=== PATIENT | female | born 1965 | race Caucasian/White ===

== ENCOUNTER 2023-09-26 04:36 | Emergency (ER) | payer OTHER, SELFPAY ==
[2023-09-26 04:36] VITALS: BMI 35.6
[2023-09-26 04:50] VITALS: BP 199/88
[2023-09-26 06:15] LABS: % Basophils 0.6 % (0-2); % Eosinophils 0.8 % (0-6); % Immature Granulocytes 0.2 % (0-0.5); % Lymphocytes 21.1 % (20.5-51.1); % Monocytes 8.3 % (1.7-9.3); Absolute Basophils 0.1 10^3/uL (0-0.2); Absolute Eosinophils 0.1 10^3/uL (0-0.7); Absolute Lymphocytes 1.8 10^3/uL (1.2-3.4); Absolute Monocytes 0.7 10^3/uL (0.1-0.6); Absolute Neutrophils 5.8 10^3/uL (1.4-6.5); Hematocrit 41.5 % (37.0-47.0); Hemoglobin 14.1 g/dL (12.0-16.0); Mean Corpuscular Volume 88.3 fL (81.0-99.0); Mean Platelet Volume 10.1 fL (7.4-10.4); Nucleated Red Blood Cells % 0 %; Platelet Count 378 10^3/uL (130-400); Red Cell Dist. Width 12.5 % (11.5-14.5); White Blood Cell Count 8.4 10^3/uL (4.8-10.8)
[2023-09-26] MEDS: ATARAX 25 MG PO (06:24)
[2023-09-26 06:52] LABS: ALT (SGPT) 27 U/L (0-35); AST (SGOT) 23 U/L (14-36); Albumin 4.3 g/dl (3.5-5.0); Alkaline Phosphatase 55 U/L (38-126); Blood Urea Nitrogen 16 mg/dl (7-17); Calcium 9.7 mg/dl (8.4-10.2); Carbon Dioxide 26 mmol/L (22-30); Chloride 103 mmol/L (98-107); Estimated Creatinine Clearance 103 ml/min; Glucose 142 mg/dl (70-99); Potassium 4.5 mmol/L (3.5-5.1); Sodium 137 mmol/L (135-145); Total Bilirubin 0.7 mg/dl (0.2-1.3); Total Protein 6.8 g/dl (6.3-8.2); eGFR > 60.00
[2023-09-26 06:53] LABS: Alcohol None Detected
--- NOTE | 2023-09-26 07:51 | ED.GENMED ---
History of Present Illness
General
Chief Complaint: Suicidal Ideation
Source: patient and spouse
Exam Limitations: none
Time Seen by Provider: 09/26/23 05:24
Nursing documentation reviewed up to this point in time: agreed with
Travel History
Have you had any contact with someone who has COVID-19?: No
Do you have any symptoms of coronavirus? Fever > 100 degrees, chills, cough, shortness of breath, sore throat, loss of taste or smell, muscle aches, or headache?: No
History of Present Illness
History of Present Illness:
This is a 58-year-old woman who resides at home with her . She has longstanding history of anxiety, insomnia and for years has been maintained on once daily Klonopin as well as alprazolam, had been prescribed by a psychiatrist who retired
this past summer. She had been receiving refills at an urgent care until July when urgent care declined further refills and recommended she establish with a new psychiatrist.
She was evaluated in this ED September 11 with complaints of anxiety, difficulty sleeping. PDMP on that date revealed her last prescription for Klonopin and alprazolam were filled July. She was evaluated by Liza ruiz and discharged to home
and has since followed up with a new psychiatrist, has been started on 2 psychiatric medications 1 is Lamictal, the other she cannot recall the name. She was provided a 1 week course of Klonopin 1 mg at time of discharge from the ED.
Benzodiazepines have since not been resumed.
She complains of progressive agitation, difficulty sleeping, depression and returns to the ED tonight with her with concerns for suicidal thoughts, thoughts of . She has no specific plan.
She denies alcohol nor drug use.
She does admit to remote history of suicidal thoughts in her teen years. No prior attempts.
She does follow with a therapist, telehealth visits but these visits are few and far between generally once per month with her next appointment scheduled for mid October.
Past History
Past History
ED Past Medical History: Hypercholesterolemia, Psychiatric (Bipolar disorder, chronic insomnia) and Other (Irritable bowel syndrome)
ED Past Surgical History: Other (Right eye)
Social History
Tobacco: Non-smoker
Alcohol: None
Drug: None
Personal:
Living: with family
Family History
Family History: Other (Noncontributory)
Phy Exam
Physical Exam
Physical Exam:
GENERAL: 58-year-old woman appears her stated age, awake and alert, mildly anxious/agitated but easily communicative. Speech is clear. She does admit to suicidal thoughts but no definitive plan. is accompanying.
EYE: pupils equal and reactive. anicteric
NECK: Supple, nontender, no meningismus, no significant adenopathy.
ENT: oral mucosa is moist. No rhinorrhea.
CARDIAC: Regular rate and rhythm. no murmur.
LUNGS: Clear breath sounds bilaterally, no acute respiratory distress, no wheezes/rales/rhonchi
ABDOMEN: Soft, nondistended, without focal tenderness
NEUROLOGICAL: Alert and oriented x3, no focal neuro deficits. Gait is king and steady.
SKIN: Warm and dry, normal color, skin intact. No rash.
MUSCULOSKELETAL: No C/C/E. peripheral pulses are full and equal b/l. No palpable tenderness.
PSYCH: Mildly anxious, agitated. Admits to thoughts of suicide but no definitive plan.
Course
Orders/Labs/Results
Orders:
Orders
09/26/23 04:58
Case Management Consult ONCE
Case Management Consult: Suicide Risk
09/26/23 05:27
Crisis Consult Urgent
Reason for Consult: suicidal ideations
09/26/23 05:44
Urine Drug Abuse Screen Urgent
09/26/23 06:03
Alcohol Urgent
Complete Blood Count/With Diff Urgent
Comprehensive Metabolic Panel Urgent
09/26/23 06:18
HydrOXYZINE [Atarax] 25 mg PO NOW STA
Abnormal Lab Results
09/26/23
06:03
Absolute Monos (auto) 0.7 H 10^3/uL
(0.1-0.6)
Glucose 142 H mg/dl
(70-99)
09/26/23 06:03
09/26/23 06:03
Vital Signs
Initial and Last Documented VS:
Initial Vital Signs
Temp Pulse Resp BP Pulse Ox
98.8 F 70 24 199/88 100
09/26/23 04:50 09/26/23 04:50 09/26/23 04:50 09/26/23 04:50 09/26/23 04:50
Last Documented Vital Signs
Temp Pulse Resp BP Pulse Ox
98.8 F 70 24 199/88 100
09/26/23 04:50 09/26/23 04:50 09/26/23 04:50 09/26/23 04:50 09/26/23 04:50
MDM/Problems Addressed
Differential Diagnosis Includes:
Patient with history of reported bipolar disorder, chronic insomnia, presents voluntarily�accompanied by her with concern for progressive agitation, depression and now with thoughts of suicide.
She is agreeable to inpatient psychiatric treatment.
She reports no prior history of alcohol or drug use.
Currently anxious, requesting something for anxiety.
History of chronic benzodiazepine use with successful recent wean will hold off on further benzodiazepines and will trial a dose of hydroxyzine.
Will check routine labs as well as UDS.
Crisis consult pending.
Chronic conditions affecting care: Psychiatric illness
Acute Exacerbation and/or Progression of Chronic Illness: Psychiatric illness
*Pulse Oximetry
Patient hypoxic: no
*Critical Care Note
Total Time (30-74mins, 75-104mins- exclusive of procedures): Not Applicable
ED Attending Note
-
Portions of this chart may have been created with voice recognition software.� Occasional wrong word or��sound alike� substitutions may have occurred due to the inherent limitations of voice recognition software.
Discharge Plan
Departure
Patient Disposition: [facility]
Date of Disposition: 09/26/23
Time of Disposition: 08:02
Patient with high blood pressure during this ER visit?: No
Condition: Good
Discharge Problem:
Suicidal ideations, Medical clearance for psychiatric admission
Prescriptions:
No Action
lamotrigine 25 mg Tablet
25 mg PO DAILY
citalopram 20 mg Tablet
20 mg PO DAILY
zinc 50 mg Tablet
50 mg PO DAILY
cyanocobalamin (vitamin B-12) [Vitamin B-12] 1,000 mcg Tablet
1,000 mcg PO DAILY
pyridoxine (vitamin B6) [Vitamin B-6] 100 mg Tablet
100 mg PO QID
vitamin B complex [Super B Complex] Capsule
1 cap PO DAILY
Referrals:
Larissa Weiss PA-C [Family Provider] -
Interventions
Interventions:
*Risk Screen - Suicide Last Done: 09/26/23 04:50
*General Assessment Last Done: 09/26/23 05:02
*Neglect/Abuse Screening Last Done: 09/26/23 04:50
*ED COVID-19 Vaccine History Last Done: 09/26/23 05:02
ED-Psychological Assessment Last Done: 09/26/23 05:03
[2023-09-26 09:12] VITALS: BP 145/76
[2023-09-26 09:56] LABS: Amphetamines Negative (Negative); Barbiturates Negative (Negative); Benzodiazepines Negative (Negative); Buprenorphine Negative (Negative); Cocaine Negative (Negative); Marijuana Negative (Negative); Methadone Negative (Negative); Methamphetamines Negative (Negative); Opiates Negative (Negative); Phencyclidine Negative (Negative); Tricyclic Antidepressants Negative (Negative)
== END 2023-09-26 11:23 ==
LOC: EMR 04:36
PROVIDERS: EMERGENCY PHYSICIAN Emergency Medicine; FAMILY PHYSICIAN Physician Assistant
DX: R45.851 Suicidal ideations (principal); F41.9 Anxiety disorder, unspecified; G47.00 Insomnia, unspecified; E78.00 Pure hypercholesterolemia, unspecified; F31.9 Bipolar disorder, unspecified; K58.9 Irritable bowel syndrome, unspecified
CPT/HCPCS: 99283; 80053; 80306; 82077; 85025